=== PATIENT | female | born 1950 | race Caucasian/White ===

== ENCOUNTER → 2020-01-02 | Outpatient (CLI) | payer OTHER ==
[~2020-01-02] MED LIST: HOLD METFORMIN - RECEIVED CONTRAST 20 ML VIAL IV SCH; IOHEXOL 350 MG/ML 100 ML (OMNIPAQUE 350) VIAL IV ONE; NS 100 ML (IVPB) BAG IV ONE
--- NOTE | 2020-01-02 14:37 | Diagnostic Imaging Report ---
PROCEDURE: CT angiography of the chest with contrast. TECHNIQUE: Multiple contiguous axial images were obtained through the chest after uneventful bolus administration of intravenous contrast. 3D reconstructed CTA MIP acquisitions were also performed. Auto Exposure Controls were utilized during the CT exam to meet ALARA standards for radiation dose reduction. DATE: January 02, 2020. COMPARISON: Chest radiographs December 23, 2019. CT chest, abdomen, and pelvis November 01, 2019. INDICATION: 69-year-old female, dyspnea. Shortness of breath. 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 FINDINGS: There are calcified right lower lobe granulomas. There is a subcentimeter calcified left lower lobe granuloma. There is no identified noncalcified pulmonary nodule. There is no lung mass. There is very minimal dependent atelectasis in the left lower lobe. There is no otherwise noted focal airspace consolidation. There is no pneumothorax. There is no pleural effusion. The central airways are patent. There is procedural change at the level of the pulmonary artery valve. The main pulmonary artery diameter measures approximately 3.4 cm which is abnormally dilated, compatible with pulmonary artery hypertension. There is no identified pulmonary embolus. The heart is not enlarged. There is no identified pericardial effusion. There is no identified abnormally enlarged mediastinal, hilar, or axillary lymph node which meets CT size criteria for adenopathy. There are atherosclerotic calcifications. The imaged portions of the upper abdomen are otherwise unremarkable. There are degenerative changes of the spine. There are median sternotomy wires. There is no identified acute bony abnormality. IMPRESSION: 1. Pulmonary artery valvular hardware noted. There is dilation of the main pulmonary artery diameter, compatible with pulmonary artery hypertension. 2. No identified pulmonary embolus or other acute cardiopulmonary abnormality. 3. Sequela of prior granulomatous disease. Dictated by: Dictated on workstation # [id number]
== END ==
LOC: RAD 12:29
PROVIDERS: ATTEND Internal Medicine Critical Care Medicine
DX: J45.909 Unspecified asthma, uncomplicated (principal); I28.1 Aneurysm of pulmonary artery; J84.10 Pulmonary fibrosis, unspecified; F17.211 Nicotine dependence, cigarettes, in remission; Z95.2 Presence of prosthetic heart valve
CPT/HCPCS: 71275